=== PATIENT | female | born 1970 | race African-American/Black ===

== ENCOUNTER 2016-11-04 02:10 | Emergency (ER) | payer MEDICAID ==
[~2016-11-04] VITALS: Ht 172.7 cm; Wt 127.0 kg
[2016-11-04 02:35] VITALS: BP 145/96
[2016-11-04] MEDS ORDERED: [UNRECOGNIZED DRUG - REMARK] (02:35)
[2016-11-04] MEDS ORDERED: HYDROCODON-ACE1 EA15 ORAL (03:09)
[2016-11-04] MEDS ORDERED: BACTRIM DS TAB1 EAC1 ORAL (03:09)
--- NOTE | 2016-11-04 03:09 | Emergency Room Report ---
History of Present Illness General Chief Complaint: Pain Source: Patient Present Illness HPI Is a 46-year-old female with no significant past medical history. She presents with left foot pain. She had hard mass over her foot for several months. She bumped it on the door a week ago. Now is soft and swollen. Worse with walking. No fever chills but no nausea no vomiting. Denies any other complaint. She drove here. Pain is 7/10. Allergies: Coded Allergies: No Known Allergies (Unverified , 11/04/16) Patient History Past Medical History: see triage record, old chart reviewed Past Surgical History: other Pertinent Family History: none Social History: Denies: drug use Last Menstrual Period: 3 weeks ago Now: No Immunizations: other Reviewed Nursing Documentation: PMH: Agreed, PSxH: Agreed Nursing Documentation-PMH Hx Hypertension: Yes Review of Systems Eye: Denies: blurred vision, eye pain ENT: Denies: ear pain, nose congestion, throat swelling Respiratory: Denies: cough, shortness of breath Cardiovascular: Denies: chest pain, palpitations Gastrointestinal: Denies: abdominal pain, diarrhea, nausea, vomiting Musculoskeletal: Denies: back pain, joint pain Skin: Denies: rash Neurological: Denies: headache, numbness Endocrine: Denies: increased thirst, increased urine Hematologic/Lymphatic: Denies: easy bruising All Other Systems: negative except mentioned in HPI Physical Exam Vital Signs Date Time Temp Pulse Resp B/P Pulse Ox O2 Delivery O2 Flow Rate FiO2 11/04/16 02:26 98.2 78 16 98 vitals normal Sp02 EP Interpretation: reviewed, normal General Appearance: well appearing, no apparent distress, alert Head: normocephalic, atraumatic Eyes: bilateral eye EOMI, bilateral eye PERRL ENT: hearing grossly normal, normal pharynx Neck: full range of motion, supple, no meningismus Respiratory: chest non-tender, lungs clear, normal breath sounds Cardiovascular #1: regular rate, rhythm, no murmur Gastrointestinal: normal bowel sounds, non tender, no mass, no organomegaly, no bruit, non-distended Musculoskeletal: back normal, gait/station normal, normal range of motion, other - Left foot: There is a fluctuant mass of about 3 cm at the base of the fourth and fifth toe. Tender to palpation. There is 1+ edema to the dorsum of the foot. No warmth. No redness. Ankle is nontender. Full range of motion. Psychiatric: mood/affect normal Skin: warm/dry Procedures Incision and Drainage Incision and Drainage : Consent: Verbal Site: Left foot Blade Size: 11 I & D Procedure: betadine prep, sterile drapes applied, sterile dressing applied, gauze wick placed Wound Location: lower extremity Anesthesia: 1% Lidocaine Volume Anesthetic (ccs): 2 Patient Tolerated: Well Complications: None Progress Area clean with Betadine and chlorhexidine. Initially I used an 18-gauge needle and aspirated pus. Because of that, I made a 1 cm incision. There was copious amount of pus expressed. At the end, there was also sebaceous material expressed. Wound then irrigated and then packed with iodoform gauze. Patient tolerated procedure without a problem. We'll culture taken. Medical Decision Making Diagnostic Impression: Primary Impression: Infected sebaceous cyst of skin ER Course She presents with an abscess. This is most likely an infected sebaceous cyst. Patient felt better now. We'll discharge home with antibiotics. Last Vital Signs Date Time Temp Pulse Resp B/P Pulse Ox O2 Delivery O2 Flow Rate FiO2 11/04/16 02:26 98.2 78 16 98 Status: improved Disposition: HOME, SELF-CARE Condition: Stable Scripts Hydrocodone/Acetaminophen 5-325* (HYDROCODONE/ACETAMINOPHEN 5-325*) 1 Each Tablet 1 TAB ORAL Q6H Y for For Pain, #15 TAB 0 Refills Prov: JESSICA JUDGE M.D. 11/04/16 Trimethoprim/Sulfamethoxazole 160/800* (BACTRIM DS TABLET*) 1 Each Tablet 1 TAB ORAL Q12H, #14 TAB 0 Refills Prov: JESSICA JUDGE M.D. 11/04/16 Additional Instructions: Followup with your doctor or come back here in 2 days for wound check and packing removal. Keep wound clean. Return for fever, chills, or worsening symptoms. JESSICA JUDGE M.D. Nov 04, 2016 03:09
[2016-11-04] MEDS ORDERED: Bactrim DS (160mg/800mg) tab ORAL ONE (03:15)
[2016-11-04 03:20] VITALS: BP 141/97
== END 2016-11-04 03:20 | disposition home or self-care (01) ==
LOC: EMR 03:00
DX: L72.3 Sebaceous cyst (principal); M79.672 Pain in left foot
CPT/HCPCS: 10060; 87070; 87205

== ENCOUNTER 2017-02-03 20:56 | Emergency (ER) | payer MEDICAID ==
[~2017-02-03] VITALS: Ht 172.7 cm; Wt 113.4 kg
[~2017-02-03 20:56] MED LIST: BACTRIM DS TAB1 EAC1 ORAL; HYDROCODON-ACE1 EA15 ORAL; [UNRECOGNIZED DRUG - REMARK]
[2017-02-03] MEDS ORDERED: BP MEDS (21:14)
[2017-02-03] MEDS ORDERED: BENADRYL25 MG ORAL (21:57)
--- NOTE | 2017-02-03 21:57 | Emergency Room Report ---
History of Present Illness General Chief Complaint: Allergic Reaction Source: Patient Present Illness HPI This is a 46-year-old female presents with allergic reaction. She had dye her hair a couple days ago. Now scalp is itching and eyes are puffy and red. Also with some swelling to the face. Has not anything for this. No respiratory complaint. No tongue edema. Worse with scratching. Allergies: Coded Allergies: No Known Allergies (Unverified , 11/04/16) Patient History Past Medical History: see triage record, old chart reviewed Past Surgical History: other Pertinent Family History: none Social History: Denies: smoking Last Menstrual Period: Jan Now: No Immunizations: other Reviewed Nursing Documentation: PMH: Agreed, PSxH: Agreed Nursing Documentation-PMH Hx Hypertension: Yes Review of Systems Eye: Denies: eye pain, blurred vision ENT: Denies: ear pain, nose congestion, throat swelling Respiratory: Denies: cough, shortness of breath Cardiovascular: Denies: chest pain, palpitations Gastrointestinal: Denies: abdominal pain, diarrhea, nausea, vomiting Musculoskeletal: Denies: back pain, joint pain Skin: Denies: rash Neurological: Denies: headache, numbness Endocrine: Denies: increased thirst, increased urine Hematologic/Lymphatic: Denies: easy bruising All Other Systems: negative except mentioned in HPI Physical Exam Vital Signs Date Time Temp Pulse Resp B/P (MAP) Pulse Ox O2 Delivery O2 Flow Rate FiO2 02/03/17 21:06 98.1 84 16 104/81 95 Room Air vitals normal Sp02 EP Interpretation: reviewed, normal General Appearance: well appearing, no apparent distress, alert Head: normocephalic, atraumatic Eyes: bilateral eye PERRL, bilateral eye EOMI, bilateral eye other - Conjunctiva injected. Both eyelids slightly puffy. ENT: hearing grossly normal, normal pharynx Neck: full range of motion, supple, no meningismus Respiratory: chest non-tender, lungs clear, normal breath sounds Cardiovascular #1: regular rate, rhythm, no murmur Gastrointestinal: normal bowel sounds, non tender, no mass, no organomegaly, no bruit, non-distended Musculoskeletal: back normal, gait/station normal, normal range of motion Psychiatric: mood/affect normal Skin: warm/dry Medical Decision Making Diagnostic Impression: Primary Impression: Allergic reaction Qualified Codes: T78.40XA - Allergy, unspecified, initial encounter ER Course Patient with allergic reaction. Ask patient to wash her hair as much as possible to dilute the dye. No anaphylactic shock. No infection. Last Vital Signs Date Time Temp Pulse Resp B/P (MAP) Pulse Ox O2 Delivery O2 Flow Rate FiO2 02/03/17 21:06 98.1 84 16 104/81 95 Room Air Status: improved Disposition: HOME, SELF-CARE Condition: Stable Scripts Diphenhydramine Hcl* (BENADRYL*) 25 Mg Capsule 50 MG ORAL Q6H Y for Itching, #30 CAP Prov: JESSICA JUDGE M.D. 02/03/17 Referrals: [facility],REFERRING (PCP) Patient Instructions: Allergies Additional Instructions: Wash your hair, especially the scalp to remove as much of the dye as possible. Followup with your Dr. in 7 days. Return if symptom worsen. JESSICA JUDGE M.D. Feb 03, 2017 21:57
[2017-02-03 22:06] VITALS: BP 114/81
[2017-02-03 22:09] VITALS: BP 128/79
== END 2017-02-03 22:12 | disposition home or self-care (01) ==
LOC: EMR 21:52
DX: T78.40XA Allergy, unspecified, initial encounter (principal); X58.XXXA Exposure to other specified factors, initial encounter; H57.8 Other specified disorders of eye and adnexa; I10 Essential (primary) hypertension
CPT/HCPCS: 99283

== ENCOUNTER 2017-02-05 04:00 | Emergency (ER) | payer MEDICAID ==
[~2017-02-05] VITALS: Ht 175.3 cm; Wt 113.4 kg
[~2017-02-05 04:00] MED LIST changes: +BENADRYL25 MG ORAL; +BP MEDS
[2017-02-05] MEDS ORDERED: PREDNISONE20 MG ORAL (04:18)
[2017-02-05] MEDS ORDERED: GENOPTIC O.O1 APPLIC BOTH EYES (04:18)
[2017-02-05 04:46] VITALS: BP 108/78
[2017-02-05] MEDS ORDERED: DiphenhydrAMINE 50mg/ml Inj IM ONE (05:15)
[2017-02-05 05:25] VITALS: BP 108/78
--- NOTE | 2017-02-06 01:33 | Emergency Room Report ---
History of Present Illness General Chief Complaint: Allergic Reaction Source: Patient Present Illness HPI This is a 46-year-old female presented after increased scalp and facial swelling. The patient had recently been seen after allergic reaction to hair dye. Patient stated that she had cleansed the area. She been taking Benadryl but noticed. Become increasingly swollen. She denied any fever. She denied difficulty breathing. Allergies: Coded Allergies: No Known Allergies (Unverified , 11/04/16) Patient History Past Medical History: see triage record Last Menstrual Period: NOW Now: No Reviewed Nursing Documentation: PMH: Agreed, PSxH: Agreed Nursing Documentation-PMH Hx Hypertension: Yes Review of Systems All Other Systems: negative except mentioned in HPI Physical Exam Vital Signs Date Time Temp Pulse Resp B/P (MAP) Pulse Ox O2 Delivery O2 Flow Rate FiO2 02/05/17 04:06 98.1 109 20 108/78 98 02/05/17 04:46 Room Air General Appearance: well appearing, no apparent distress, alert, GCS 15 Head: normocephalic, atraumatic ENT: hearing grossly normal, normal voice Neck: full range of motion, supple Respiratory: no respiratory distress, speaking full sentences Cardiovascular #1: normal inspection, normal peripheral pulses, regular rate, rhythm Gastrointestinal: normal inspection, soft Musculoskeletal: normal inspection, back normal, digits/nails normal, no calf tenderness Neurologic: normal inspection, alert, oriented x3, responsive, normal gait Psychiatric: mood/affect normal Skin: no rash Medical Decision Making Diagnostic Impression: Primary Impression: Allergic reaction ER Course Patient presented for skin rash. Differential diagnosis included was not limited to allergic reaction, contact dermatitis, chemical burn among others. Patient's benign exam and does not appear to require any further imaging or laboratory testing at this time. The patient was given prescription for prednisone. She showed no evidence of airway compromise. Patient given IM Benadryl. The patient is advised to follow up with primary care doctor in 1-2 days. Patient is advised to return if any worsening condition or if any changes in status that are concerning. Last Vital Signs Date Time Temp Pulse Resp B/P (MAP) Pulse Ox O2 Delivery O2 Flow Rate FiO2 02/05/17 05:25 98.1 98 20 108/78 98 Room Air Status: improved Disposition: HOME, SELF-CARE Condition: Stable Scripts Gentamicin Sulfate (Gentak) 3.5 Gm Oint...g. 1 APPLIC BOTH EYES THREE TIMES A DAY, #3.5 APPLIC Prov: Ever Calvillo 02/05/17 Prednisone* (PREDNISONE*) 20 Mg Tablet 40 MG ORAL DAILY, #10 TAB Prov: Ever Calvillo 02/05/17 Referrals: NON PHYSICIAN (PCP) Patient Instructions: Allergies, [id number] Ever Calvillo Feb 06, 2017 01:33
== END 2017-02-05 05:29 | disposition home or self-care (01) ==
LOC: EMR 04:27
DX: T78.40XA Allergy, unspecified, initial encounter (principal); X58.XXXA Exposure to other specified factors, initial encounter; I10 Essential (primary) hypertension
CPT/HCPCS: 96372; 99284; J1200

== ENCOUNTER 2017-02-07 23:34 | Emergency (ER) | payer MEDICAID ==
[~2017-02-07] VITALS: Ht 175.3 cm; Wt 113.4 kg
[~2017-02-07 23:34] MED LIST changes: +GENOPTIC O.O1 APPLIC BOTH EYES; +PREDNISONE20 MG ORAL
[2017-02-07 23:50] VITALS: BP 141/78
[2017-02-08] MEDS ORDERED: Dexamethasone 4mg/ml vial IM ONE (00:15)
[2017-02-08] MEDS ORDERED: Bactrim DS (160mg/800mg) tab ORAL ONE (00:15)
--- NOTE | 2017-02-08 01:04 | Emergency Room Report ---
History of Present Illness General Chief Complaint: Allergic Reaction Source: Patient Present Illness HPI Seen 02/03 with allergic reaction of sclap to hair dye. Treated initially with benadryl. She returned 02/05 and was given oral prednisone and more benadryl. Her eyes were red and gentamycin drops were also given. The rash was worse before the steroids were begun, but she still has swelling and discomfort of her face. She states it had spread before to neck and upper shoulders. This part is unchanged. She denies SOB. Also no change in vision. The scalp is weeping and some of this is getting in her eyes. No NVD. No fevers. Tetanus UTD. Allergies: Coded Allergies: No Known Allergies (Unverified , 11/04/16) Patient History Past Medical History: see triage record Social History Narrative at home Last Menstrual Period: 02/04/17 Now: No Reviewed Nursing Documentation: PMH: Agreed, PSxH: Agreed Nursing Documentation-PMH Past Medical History: No History, Except For Hx Hypertension: Yes Review of Systems All Other Systems: negative except mentioned in HPI Physical Exam Vital Signs Date Time Temp Pulse Resp B/P (MAP) Pulse Ox O2 Delivery O2 Flow Rate FiO2 02/07/17 23:46 98.1 98 17 141/78 99 Room Air General Appearance: well appearing, no apparent distress, GCS 15 Head: normocephalic, atraumatic, other - diffuse rash scalp, neck face Eyes: bilateral eye PERRL, bilateral eye lid inflammation, bilateral eye Scleral Injection ENT: hearing grossly normal, no angioedema, normal voice, moist mucus membranes Neck: full range of motion, supple, other - rash Respiratory: lungs clear, normal breath sounds, no respiratory distress, speaking full sentences Cardiovascular #1: normal peripheral pulses, regular rate, rhythm Gastrointestinal: normal bowel sounds, overweight Musculoskeletal: digits/nails normal, gait/station normal, normal range of motion Neurologic: alert, normal gait, grossly normal Psychiatric: mood/affect normal Skin: other - wheel flare reactions with maculopapular appearance shoulders up involving scalp with serous drainage from scalp lesions Medical Decision Making Diagnostic Impression: Primary Impression: Allergic reaction Qualified Codes: T78.40XD - Allergy, unspecified, subsequent encounter Additional Impression: Cellulitis of scalp ER Course Patient with allergic reaction to hair dye with progressive rash. (Poorly described on prior visits.) Ddx: contact dermatitis, allergic reaction, cellulitis. As localized, doubt vasculitis. Eyes now involved and use of gent possibly worsened with this. No airway compromise, VS against anaphylaxis. I was considering labs and more aggressive treatment, however, the patient states she is getting better from prior visits with prednisone. She mainly wants some cream to help. The rash is impressive at this time. This needs close follow up and more aggressive treatment. Concern over possible suprainfection merits use of systemic antibiotics (will cover MRSA). Discussed need for close follow with patient. Patient stable for outpatient observation and treatment. Last Vital Signs Date Time Temp Pulse Resp B/P (MAP) Pulse Ox O2 Delivery O2 Flow Rate FiO2 02/08/17 01:45 97.9 95 15 144/74 99 Room Air Status: improved Disposition: HOME, SELF-CARE Condition: Improved Scripts Prednisone* (PREDNISONE*) 10 Mg Tablet 10 MG ORAL DAILY, #21 TAB 0 Refills 4 po QD X 2, 3 po QD X 2, 2 po QD X 2, 1 po QD X 4 Prov: Baljit Flowers M.D. 02/08/17 Naphazoline Hcl/Phenir Mal (NAPHCON-A EYE DROPS) 15 Ml Drops 2 DROP OPHTHALM Q6HR Y for itching and redness, #10 ML Prov: Baljit Flowers M.D. 02/08/17 Bacitracin (Bacitracin) 28.4 Gm Oint...g. 1 APPLIC TOPIC BID, #30 GM 1 Refill Prov: Baljit Folwers M.D. 02/08/17 Hydrocortisone 1% cream (Hydrocortisone 1% cream) Y Cr 1 APPLIC TOPIC BID Y for Itching, #30 GM 1 Refill Prov: Baljit Flowers M.D. 02/08/17 Clobetasol Propionate (CLOBEX) 118 Ml Shampoo 1 APPLIC TP QOD, #60 ML Prov: Baljit Flowers M.D. 02/08/17 Triamcinolone Acetonide (TRIAMCINOLONE ACETONIDE) 15 Gm Cream..g. 1 APPLIC TP BID, #30 GM 1 Refill Prov: Baljit Flowers M.D. 02/08/17 Diphenhydramine Hcl* (BENADRYL*) 25 Mg Capsule 25-50 MG ORAL Q6H Y for Itching, #20 CAP 1 Refill Prov: Baljit Flowers M.D. 02/08/17 Trimethoprim/Sulfamethoxazole 160/800* (BACTRIM DS TABLET*) 1 Each Tablet 1 TAB ORAL Q12H, #14 TAB 0 Refills Prov: Baljit Flowers M.D. 02/08/17 Referrals: [facility]ERR[facility] (PCP) Baljit Flowers M.D. Feb 08, 2017 01:04
[2017-02-08] MEDS ORDERED: HYDROCORTISON28.4 G5 TOPIC (01:25)
[2017-02-08] MEDS ORDERED: TRIAMCINOLONE A15 GM TP (01:25)
[2017-02-08] MEDS ORDERED: CLOBEX118 ML TP (01:25)
[2017-02-08] MEDS ORDERED: NAPHCON-A EYE D15 ML OPHTHALM (01:25)
[2017-02-08] MEDS ORDERED: BACITRACIN15 GM TOPIC (01:25)
[2017-02-08] MEDS ORDERED: BENADRYL25 MG ORAL (01:25)
[2017-02-08] MEDS ORDERED: BACTRIM DS TAB1 EAC1 ORAL (01:25)
[2017-02-08] MEDS ORDERED: PREDNISONE10 MG ORAL (01:28)
[2017-02-08 01:45] VITALS: BP 144/74
== END 2017-02-08 01:45 | disposition home or self-care (01) ==
LOC: EMR 23:59
DX: T78.40XD Allergy, unspecified, subsequent encounter (principal); X58.XXXD Exposure to other specified factors, subsequent encounter; L03.811 Cellulitis of head [any part, except face]
CPT/HCPCS: 96372; 99284; J1100

== ENCOUNTER 2017-07-22 02:50 | Emergency (ER) | payer MEDICAID ==
[~2017-07-22] VITALS: Ht 172.7 cm; Wt 114.3 kg
[~2017-07-22 02:50] MED LIST changes: +BACITRACIN15 GM TOPIC; +CLOBEX118 ML TP; +HYDROCORTISON28.4 G5 TOPIC; +NAPHCON-A EYE D15 ML OPHTHALM; +PREDNISONE10 MG ORAL; +TRIAMCINOLONE A15 GM TP
[2017-07-22 03:00] VITALS: BP 120/74
[2017-07-22] MEDS ORDERED: Bactrim-DS 1 tab ORAL ONE (03:15)
[2017-07-22] MEDS ORDERED: BACTRIM DS TAB1 EAC1 ORAL (03:24)
[2017-07-22] MEDS ORDERED: BENADRYL25 MG ORAL (03:24)
[2017-07-22 03:25] VITALS: BP 125/72
--- NOTE | 2017-07-22 03:25 | Emergency Room Report ---
History of Present Illness General Chief Complaint: Skin Rash/Abscess Source: Patient, Medical Record Present Illness HPI Is a 46-year-old female presents with chief complaint of allergic reaction. She 's been here several time for the same complaint. She presents with allergic reaction to her scalp and facial area. Now with bumps in the back of her head. Denies any fever or chills. She was using a hair dye cause a reaction. Onset couple days ago. Did not take anything for it. Allergies: Coded Allergies: No Known Allergies (Unverified , 11/04/16) Patient History Past Medical History: see triage record, old chart reviewed Past Surgical History: none Pertinent Family History: none Social History: Denies: smoking Last Menstrual Period: 1st week of jun Now: No Immunizations: other Reviewed Nursing Documentation: PMH: Agreed, PSxH: Agreed Nursing Documentation-PMH Hx Hypertension: Yes Review of Systems Eye: Denies: eye pain, blurred vision ENT: Denies: ear pain, nose congestion, throat swelling Respiratory: Denies: cough, shortness of breath Cardiovascular: Denies: chest pain, palpitations Gastrointestinal: Denies: abdominal pain, diarrhea, nausea, vomiting Musculoskeletal: Denies: back pain, joint pain Skin: Denies: rash Neurological: Denies: headache, numbness Endocrine: Denies: increased thirst, increased urine Hematologic/Lymphatic: Denies: easy bruising All Other Systems: negative except mentioned in HPI Physical Exam Vital Signs Date Time Temp Pulse Resp B/P (MAP) Pulse Ox O2 Delivery O2 Flow Rate FiO2 07/22/17 02:52 98.2 82 18 118/75 99 Room Air 98.2 vitals normal Sp02 EP Interpretation: reviewed, normal General Appearance: well appearing, no apparent distress, alert Head: normocephalic, atraumatic, other - Forehead with crusting. Eyes: right eye other - Puffiness to the right eyelid, bilateral eye PERRL, bilateral eye EOMI ENT: hearing grossly normal, normal pharynx Neck: full range of motion, supple, no meningismus Respiratory: chest non-tender, lungs clear, normal breath sounds Cardiovascular #1: regular rate, rhythm, no murmur Gastrointestinal: normal bowel sounds, non tender, no mass, no organomegaly, no bruit, non-distended Musculoskeletal: back normal, gait/station normal, normal range of motion Psychiatric: mood/affect normal Skin: warm/dry Medical Decision Making Diagnostic Impression: Primary Impression: Allergic reaction Qualified Codes: T78.40XA - Allergy, unspecified, initial encounter Additional Impression: Cellulitis of scalp ER Course Patient presents with allergic reaction with possible secondary cellulitis. We' ll discharge home with antibiotics and Benadryl. The patient to stop using a hair dye. This is the fourth time she been here for the same thing. Last Vital Signs Date Time Temp Pulse Resp B/P (MAP) Pulse Ox O2 Delivery O2 Flow Rate FiO2 07/22/17 03:00 98.1 79 17 120/74 99 Room Air 98.1 Status: improved Disposition: HOME, SELF-CARE Condition: Stable Scripts Trimethoprim/Sulfamethoxazole 160/800* (BACTRIM DS TABLET*) 1 Each Tablet 1 TAB ORAL Q12H, #14 TAB 0 Refills Prov: JESSICA JUDGE M.D. 07/22/17 Diphenhydramine Hcl* (BENADRYL*) 25 Mg Capsule 50 MG ORAL Q6H Y for Itching, #30 CAP Prov: JESSICA JUDGE M.D. 07/22/17 Additional Instructions: Stopped using the hair dye. Followup with your doctor 7 days. Return if worse. JESSICA JUDGE M.D. Jul 22, 2017 03:25
== END 2017-07-22 03:45 | disposition home or self-care (01) ==
LOC: EMR 03:37
DX: T78.40XA Allergy, unspecified, initial encounter (principal); X58.XXXA Exposure to other specified factors, initial encounter; L03.811 Cellulitis of head [any part, except face]; I10 Essential (primary) hypertension
CPT/HCPCS: 99284